=== PATIENT | male | born 1955 | race Caucasian/White ===

== ENCOUNTER 2019-05-21 02:36 | Emergency (ER) | payer MEDICAID, OTHER ==
[~2019-05-21] VITALS: Ht 160 cm; Wt 75.3 kg
[2019-05-21 02:48] VITALS: BP 151/89
[2019-05-21 03:27] LABS: BASOPHILS % (AUTO) 0.6 % (0.0-2.0); HEMATOCRIT 41 % (39-51); LYMPHOCYTES # (AUTO) 1.4 /CMM (0.8-4.8); LYMPHOCYTES % (AUTO) 21.6 % (20.0-44.0); MEAN CORPUSCULAR HGB CONC 34 g/dl (31.0-36.0); MEAN CORPUSCULAR VOLUME 99 fL (80-96); MONOCYTES # (AUTO) 0.7 /CMM (0.1-1.30); MONOCYTES % (AUTO) 10.8 % (2.0-12.0); NEUTROPHILS # (AUTO) 4.1 /CMM (1.8-8.9); PLATELET COUNT (AUTO) 232 /CMM (150-450); RED BLOOD CELL COUNT(AUTO) 4.18 MIL/uL (4.5-6.0); WHITE BLOOD COUNT (AUTO) 6.3 K/uL (4.3-11.0)
[2019-05-21] MEDS ORDERED: IPRATROPIUM NEB FS 0.5 MG/2.5 ML AMPUL.NEB NEB ONE (03:30)
[2019-05-21] MEDS ORDERED: ALBUTEROL FS 2.5 MG/3 ML VIAL.NEB NEB ONE (03:30)
[2019-05-21 03:34] LABS: CALCIUM, SERUM 8.5 mg/dL (8.5-10.1); CARBON DIOXIDE 30 mmol/L (21-32); CHLORIDE 104 mmol/L (98-107); GLUCOSE 114 mg/dL (74-106); SODIUM SERUM 140 mmol/L (136-145); UREA NITROGEN, BLOOD 19 mg/dL (7-18)
== END 2019-05-21 06:59 | disposition home or self-care (01) ==
LOC: ER 02:40
DX: R06.00 Dyspnea, unspecified (principal); J45.909 Unspecified asthma, uncomplicated
CPT/HCPCS: 36415; 71045-TC; 80048-TC; 83880; 84484-TC; 85025-TC

== ENCOUNTER 2020-07-11 20:47 | Inpatient (IN) | payer MEDICARE, OTHER ==
[~2020-07-11] VITALS: Ht 149.9 cm; Wt 62.6 kg
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
--- NOTE | 2020-07-11 21:11 | NUR ---
PT AMBULATORY TO RESTROOM WITH STEADY GAIT
--- NOTE | 2020-07-11 21:15 | NUR ---
RADIOLOGY AT BEDSIDE FOR XRAY, PT STILL IN RESTROOM
[2020-07-11] MEDS ORDERED: HYDROCODONE/APAP 10/325MG TABLET PO ONE (21:30)
--- NOTE | 2020-07-11 21:42 | NUR ---
RADIOLOGY AT BEDSIDE FOR XRAY
--- NOTE | 2020-07-11 22:00 | NUR ---
IV INITIATED LAC 18G. LABS DRAWN FROM SITE. BLENDER OPERATOR AT BEDSIDE FOR COLLECTION
[2020-07-11] MEDS ORDERED: PROPOFOL 20 ML IV ONE (22:07)
[2020-07-11] MEDS ORDERED: MORPHINE SULFATE INJ 4 MG/ML DISP.SYRIN ONE (22:07)
[2020-07-11] MEDS ORDERED: ONDANSETRON HCL/PF 4 MG/2 ML VIAL ONE (22:07)
--- NOTE | 2020-07-11 22:15 | NUR ---
DR. GARCIA, 2 RNS, RT, AND TECH AT BEDSIDE FOR R SHOULDER REDUCTION
[2020-07-11] MEDS ORDERED: MORPHINE SULFATE INJ 10 MG/ML DISP.SYRIN IV ONE (22:30)
[2020-07-11] MEDS ORDERED: ONDANSETRON HCL/PF 4 MG/2 ML VIAL IV ONE (22:30)
--- NOTE | 2020-07-11 22:40 | NUR ---
Arianne malin in [facility] - 07/12/20 at 0017 by SUNG IV INITIATED LAC 18G. LABS DRAWN FROM SITE. CERTIFIED FIRE INVESTIGATOR AT BEDSIDE FOR COLLECTION
--- NOTE | 2020-07-11 22:51 | NUR ---
COVID SWAB COLLECTED AND SENT TO LAB
[2020-07-11] MEDS ORDERED: PROPOFOL 200 MG/20 ML VIAL IV ONE (23:00)
[2020-07-11] MEDS ORDERED: Z GUARD REMEDY 2 OZ OINT TP PRN (23:30)
[2020-07-11] MEDS ORDERED: MAGNESIUM HYDROXIDE 30 ML UDC PO PRN (23:30)
[2020-07-11] MEDS ORDERED: ACETAMINOPHEN 325 MG TABLET PO PRN (23:30)
[2020-07-11] MEDS ORDERED: ZOLPIDEM TARTRATE 5 MG TABLET PO PRN (23:30)
[2020-07-11] MEDS ORDERED: MAG HYDROX/AL HYDROX/SIMETH 30 ML UDC PO PRN (23:30)
[2020-07-11] MEDS ORDERED: HYDROCODONE/APAP 5/325MG TABLET PO PRN (23:30)
[2020-07-11] MEDS ORDERED: ONDANSETRON HCL/PF 4 MG/2 ML VIAL IVP PRN (23:30)
[2020-07-11] MEDS ORDERED: IV NS 0.9% 1,000 ML IV PRN (23:30)
[2020-07-11] MEDS ORDERED: HYDROMORPHONE 1 MG/1 ML DISP.SYRIN ONE (23:46)
[2020-07-11] MEDS: HYDROMORPHONE INJ 2 MG/ML DISP.SYRIN IV PRN (23:55)
--- NOTE | 2020-07-12 00:07 | NUR ---
CALL FROM LAB. RAPID COVID NEGATIVE.
--- NOTE | 2020-07-12 00:28 | NUR ---
MAKENNA CLARKE, CLINIC SPECIALIST AT BEDSIDE FOR EVALUATION
[2020-07-12] MEDS ORDERED: VANCOMYCIN 1 GM in IV D5W 250ml IV ONE (03:00)
--- NOTE | 2020-07-12 03:26 | NUR ---
PT REFUSING BLOOD DRAW AT THIS TIME. MAKENNA CLARKE NP MADE AWARE Addendum: 07/12/20 at 033 by SUNG Amendment undone in EDM - 07/12/20 at 332 by SUNG NO BLOOD CULTURES, PT REFUSING BLOOD DRAW. UNABLE TO ADMINISTER VANCOMYCIN AND MERREM AT THIS TIME. MAKENNA CLARKE NP MADE AWARE Addendum: 07/12/20 at 033 by SUNG NO BLOOD CULTURES, PT REFUSING BLOOD DRAW. UNABLE TO ADMINISTER VANCOMYCIN AT THIS TIME. MAKENNA CLARKE NP MADE AWARE
[2020-07-12] MEDS ORDERED: MEROPENEM 1 G in IV NS 0.9% 100 ML IV ONE (05:00)
[2020-07-12] MEDS ORDERED: MEROPENEM 1 G in IV NS 0.9% 100 ML IV SCH (05:00)
--- NOTE | 2020-07-12 05:10 | NUR ---
PT STILL REFUSING BLOOD DRAW FOR AM LABS AND BLOOD CULTURES. MAKENNA CLARKE NP MADE AWARE
[2020-07-12] MEDS ORDERED: HYDROMORPHONE 1 MG/1 ML DISP.SYRIN ONE (05:33)
[2020-07-12] MEDS: HYDROMORPHONE INJ 2 MG/ML DISP.SYRIN IV PRN (05:46)
--- NOTE | 2020-07-12 06:07 | NUR ---
LEGAL INSTRUCTOR AT BEDSIDE FOR BLOOD DRAW
[2020-07-12 06:20] LABS: BASOPHILS % (AUTO) 0.4 % (0.0-2.0); EOSINOPHILS % (AUTO) 0.5 % (0.0-6.0); HEMATOCRIT 42 % (39-51); HEMOGLOBIN 14.3 g/dL (13.5-17.5); LYMPHOCYTES # (AUTO) 1.4 /CMM (0.8-4.8); MEAN CORPUSCULAR HGB CONC 34 g/dl (31.0-36.0); MEAN CORPUSCULAR VOLUME 98 fL (80-96); MONOCYTES # (AUTO) 1.1 /CMM (0.1-1.30); MONOCYTES % (AUTO) 10.8 % (2.0-12.0); NEUTROPHILS # (AUTO) 7.4 /CMM (1.8-8.9); NEUTROPHILS % (AUTO) 74.3 % (43.0-81.0); PLATELET COUNT (AUTO) 235 /CMM (150-450)
[2020-07-12 06:58] LABS: ALBUMIN 3.8 g/dL (3.4-5.0); BILIRUBIN,TOTAL 0.7 mg/dL (0.2-1.0); CALCIUM, SERUM 8.4 mg/dL (8.5-10.1); CREATININE 0.9 mg/dL (0.6-1.3); MAGNESIUM 2.1 mg/dL (1.8-2.4); PHOSPHORUS 3.9 mg/dL (2.5-4.9); POTASSIUM 4.1 mmol/L (3.5-5.1); TOTAL PROTEIN, SERUM 7.3 g/dL (6.4-8.2)
--- NOTE | 2020-07-12 07:21 | NUR ---
REPORT GIVEN TO GUILLE ROPER FOR ELIZABETH
--- NOTE | 2020-07-12 08:06 | NUR ---
PATIENT A/OX4, BREATHING EVEN AND UNLABORED, NO SOB NOTED. NPO AT THIS TIME FOR POSSIBLE SURGERY TODAY FOR RIGHT SHOULDER DISLOCATION.
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
--- NOTE | 2020-07-12 10:14 | NUR ---
ROOM GIVEN 327-2. GUILLE PARK.
--- NOTE | 2020-07-12 10:17 | NUR ---
REPORT GIVEN TO XAVIER HAN FOR ELIZABETH. ENDORSED THAT PATIENT HAS NOT SIGN ANY CONSENT FORM FOR THE RIGHT SHOULDER CLOSED REDUCTION, SCHEDULED AT [address] MENDIETA. KEEP PATIENT NPO AT THIS TIME. PATIENT A/OX4, AMBULATORY WITH STEADY GAIT. WITH IMMOBILIZER ON RIGHT SHOULDER.
--- NOTE | 2020-07-12 10:25 | NUR ---
PATIENT TRANSFERRED TO ROOM 323-1 IN STABLE CONDITION. NO DISTRESS NOTED. PATIENT AMBULATORY WITH STEADY GAIT.
--- NOTE | 2020-07-12 10:30 | NUR ---
MS/RN RECEIVED PATIENT RECEIVED PATIENT IN STABLE CONDITION. LAC HEPLOCK WAS DISLODGED, HL WAS REMOVED AND PRESSURE DRESSING WAS APPLIED. TRIED TO REINSERT NEW IV SITE. PATIENT REFUSED. PATIENT IS A/O X4. PATIENT ON ROOM AIR TOLERATING WELL, BREATHING EVEN NON LABORED, NO SOB NOTED. SAFETY MEASURES IN PLACE, BED LOCKED AND IN LOWEST POSITION, CALL LIGHT WITHIN REACH. WILL CONTINUE TO MONITOR AND ENSURE SAFETY.
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
[2020-07-12] MEDS: MEROPENEM 500 MG in IV NS 0.9% 100 ML IV SCH ×3 (13:00→20:54)
--- NOTE | 2020-07-12 13:45 | NUR ---
MS/RN Note IV MEDICATION SCHEDULED FOR 1300 NOT ADMINISTERED, PT DID NOT HAVE PATENT IV ACCESS AND REFUSED TO HAVE NEW IV SITE INSERTED
[2020-07-12] MEDS ORDERED: FENTANYL PF 100MCG/2ML AMPUL ONE (14:10)
[2020-07-12] MEDS ORDERED: MORPHINE SULFATE INJ 2 MG/ML DISP.SYRIN IV PRN (15:00)
[2020-07-12] MEDS ORDERED: HYDROCODONE/APAP 10/325MG TABLET PO PRN (15:00)
[2020-07-12] MEDS: IV PREMIX D5 1/2NS + KCL 1,000 ML IV SCH (15:37)
[2020-07-12] MEDS: VANCOMYCIN 1 GM in IV D5W 250 ML IV SCH (16:08)
--- NOTE | 2020-07-12 16:09 | NUR ---
MS/RN NOTES IV VANCOMYCIN ORDER FOR 1600: NOTES STATE TO HOLD IF TROUGH OVER 20, CALLED PHARMACY ([id number]) AND COMMUNICATED THAT PT DID NOT HAVE A VALUE FOR VANCO TROUGH. PHARMACY INDICATED IT WAS SAFE TO INFUSE PRESCRIPTION.
[2020-07-12 16:55] VITALS: BP 149/83
--- NOTE | 2020-07-12 18:37 | NUR ---
MS/RN CLOSING NOTE PATIENT IS A/O X4. PATIENT ON ROOM AIR TOLERATING WELL, BREATHING EVEN NON LABORED, NO SOB NOTED. NO ACUTE DISTRESS NOTED, S/P CLOSED REDUCTION ON RIGHT SHOULDER. SAFETY MEASURES IN PLACE, BED LOCKED AND IN LOWEST POSITION, CALL LIGHT WITHIN REACH. ALL NEEDS MET THROUGHOUT THE SHIFT. WILL ENDORSE TO SHEAR OPERATOR HELPER NURSE.
--- NOTE | 2020-07-12 19:26 | NUR ---
RN NOTES PATIENT IS A/O X4. PATIENT ON ROOM AIR TOLERATING WELL, BREATHING EVEN NON LABORED, NO SOB NOTED. NO ACUTE DISTRESS NOTED, S/P CLOSED REDUCTION ON RIGHT SHOULDER. SAFETY MEASURES IN PLACE, BED LOCKED AND IN LOWEST POSITION, CALL LIGHT WITHIN REACH. ALL NEEDS MET THROUGHOUT THE SHIFT. WILL CONTINUE TO0 MONITOR
--- NOTE | 2020-07-12 20:54 | NUR ---
RN NOTES PT REFUSED IV ATB X3 RISK AND BENEFITS EXPLAINED X3 PT STATED " IM TIRED OF GETTING IV MEDS I HAVE TO KEEP GETTING UP FOR THE BATHROOM I DON'T WANT IT I DON'T WANT THE FLUIDS EITHER DISCONNECT ME NOW". RN DISCONNECTED PATIENT FROM IV FLUIDS. RN OFFERED PATIENT TO USE A URINAL INSTEAD PT REFUSED. PT REFUSES TO PUT ON ARM SLING X3 RISK AND BENEFITS EXPLAINED. PT STATED " I DON'T LIKE THIS SLING I WANT A NEW ONE BUT NOT THIS KIND. I WONT PUT IT ON". NURSE EXPLAINED TO PATIENT WE ONLY HAVE THAT TYPE OF SLING BUT WILL GET HIM A NEW ONE.WILL CONTINUE TO MONITOR.
[2020-07-12 21:34] VITALS: BP 146/102
--- NOTE | 2020-07-13 | NUR ---
RN NOTES NEW ARM SLING PROVIDED PT LET RN PUT IT ON PT IS NOW IN BED ALL NURSING NEEDS MET. CALL LIGHT WITHIN REACH WILL OCNTNIUE TO MONITOR. Addendum: 07/13/20 at 0407 by ALFREDO EDWARDS RN RN ASKED IF SHE WOULD CONNECT IV FLUIDS BAQCK TO THE PT AT THIS TIME. PATIENT REFUSED X3 RISK AND BENEFITS EXPLAINED X 3. WILL CONTINUE TO MONITOR.
[2020-07-13] MEDS: VANCOMYCIN 1 GM in IV D5W 250 ML IV SCH (04:00)
--- NOTE | 2020-07-13 04:15 | NUR ---
RN NOTES PT REFUSED IV ATB X3 RISK AND BENEFITS EXPLAINED X3. PT STATED " CANT YOU SEE IM SLEEPING LEAVE ME ALONE CANT YOU GIVE ME THE MEDICINE LATER?" RN EXPLAINED TO PT THAT MEDICATION NEEDS TO BE GIVEN WITHIN A CERTAIN TIME FRAME AND COULD COME BACK IN A BIT TO GIVE THE ATB. PT STATED " IN THAT CASE I DON'T WANT THE ATB JUST LET ME SLEEP" PT ALSO REFUSED IV FLUIDS X3 RISK AND BENEFITS EXPLAINED X3. WILL CONTINUE TO MONITOR.
[2020-07-13] MEDS: IV PREMIX D5 1/2NS + KCL 1,000 ML IV SCH (04:16)
[2020-07-13] MEDS: MEROPENEM 500 MG in IV NS 0.9% 100 ML IV SCH ×2 (05:00→12:52)
--- NOTE | 2020-07-13 05:13 | NUR ---
RN NOTES PT REFUSED ATB X3 RISK AND BENEFITS EXPLAINED X3. PT STATED " I ALREADY TOLD YOU NOT TO BOTHER ME I DON'T WANT THE ANTIBIOTIC" RN EXPLAINED THAT THIS WAS A DIFFERENT BAG OF ANTIBIOTICS TO THE PT. PT STATED " I DON'T WANT IT I ALREADY TOLD YOU NOW LET ME SLEEP" WILL CONTINUE TO MONITOR.
--- NOTE | 2020-07-13 06:36 | NUR ---
RN NOTES PATIENT ASLEEP IN BED EASY TO AROUSE. PATIENT ON ROOM AIR TOLERATING WELL, BREATHING EVEN NON LABORED, NO SOB NOTED. NO ACUTE DISTRESS NOTED, S/P CLOSED REDUCTION ON RIGHT SHOULDER. SAFETY MEASURES IN PLACE, BED LOCKED AND IN LOWEST POSITION, CALL LIGHT WITHIN REACH. ALL NEEDS MET THROUGHOUT THE SHIFT. WILL ENDORSE CARE TO DAY SHIFT NURSE.
--- NOTE | 2020-07-13 06:45 | NUR ---
RN NOTES PT REFUSED LABS THIS MORNING X3 RISK AND BENEFITS EXPLAINED X3
--- NOTE | 2020-07-13 07:10 | NUR ---
MS RN OPENING NOTES RECEIVED PT IN THE BED. A/O X4. DENIES ANY PAIN. NO SOB NOTED. NO S/S OF RESPIRATORY DISTRESS. IV ACCESS ON L HAND #22 G. SAFETY MEASURES MAINTAINED. BED IN LOWEST POSITION, BRAKES LOCKED. SIDE RAILS UP X2. CALL LIGHT WITHIN REACH. WILL CONTINUE PLAN OF CARE.
[2020-07-13 08:00] VITALS: BP 132/96
[2020-07-13] MEDS ORDERED: CEPH500C2 PO (13:56)
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
== END 2020-07-13 16:00 | disposition home health service (06) | DRG 563 ==
LOC: ER 20:47 → TRANSITION 07-12 00:02 → TELE 07-12 10:25 → MED 07-12 18:20
PROVIDERS: ADMIT Nurse Practitioner Acute Care; ATTEND Student in an Organized Health Care Education/Training Program
PROC: 0PSCXZZ Reposition Right Humeral Head, External Approach (ICD-10-PCS; principal; 2020-07-11)
DX: S43.014A Anterior dislocation of right humerus, initial encounter (principal); L03.115 Cellulitis of right lower limb; L03.116 Cellulitis of left lower limb; J45.909 Unspecified asthma, uncomplicated; Z86.19 Personal history of other infectious and parasitic diseases; Z59.0 Homelessness; Y04.2XXA Assault by strike against or bumped into by another person, initial encounter; Y92.481 Parking lot as the place of occurrence of the external cause; Z86.59 Personal history of other mental and behavioral disorders; Z20.822 Contact with and (suspected) exposure to COVID-19
CPT/HCPCS: 36415; 73020; 73030-TC; 73060-TC; 80053-TC; 83735-TC; 84100-TC; 85025-TC; 87040-TC; 87081-TC; 97116-TC; 97530-TC; G0378; G0500; J1170; J2001; J2185; J2270; J2405; J2704; J3010; J3370; J3490; J7030; J7060; L1830